=== PATIENT | male | born 1950 | race Two or more races ===

== ENCOUNTER → 2016-03-28 | Outpatient (CLI) | payer OTHER ==
[2016-03-28 20:49] LABS: Hepatitis B Surface Antibody Positive
== END | disposition home or self-care (01) ==
LOC: LAB 14:55
PROVIDERS: ATTEND Nurse Practitioner
DX: Z77.21 Contact with and (suspected) exposure to potentially hazardous body fluids (principal); Y92.148 Other place in prison as the place of occurrence of the external cause; Y99.0 Civilian activity done for income or pay
CPT/HCPCS: 36415; 83036; 86703; 86706; 86803; 87340

== ENCOUNTER → 2017-02-27 | Outpatient (CLI) | payer OTHER ==
[2017-02-27 16:23] LABS: Albumin 4.1 g/dL (3.4-5.0); Bilirubin, Direct 0.1 mg/dL (0-0.2); Bilirubin, Total 0.4 mg/dL (0.2-1.0); Total Protein 7.7 g/dL (6.4-8.2)
[2017-02-27 16:28] LABS: Hepatitis B Surface Antibody Positive
[2017-02-27 16:39] LABS: Hepatitis B Surface Antigen Negative (Negative)
== END | disposition home or self-care (01) ==
LOC: LAB 15:27
PROVIDERS: ATTEND Preventive Medicine Preventive Medicine/Occupational Environmental Medicine
DX: Z02.1 Encounter for pre-employment examination (principal)
CPT/HCPCS: 36415; 80076; 86703; 86706; 86803; 87340

== ENCOUNTER → 2018-05-17 | Outpatient (CLI) | payer BC ==
[2018-05-17 08:36] LABS: Cholesterol 182 mg/dL (< 200); HDL Cholesterol 84 mg/dL (40-59); LDL Cholesterol 83 mg/dL (< 100); Triglycerides 110 mg/dL (< 150)
== END | disposition home or self-care (01) ==
LOC: LAB 07:41
DX: Z00.01 Encounter for general adult medical examination with abnormal findings (principal); R39.9 Unspecified symptoms and signs involving the genitourinary system
CPT/HCPCS: 36415; 80061; 83036; 84153